=== PATIENT | male | born 1965 | race Caucasian/White ===

== ENCOUNTER 2019-07-08 00:13 | Emergency (ER) | payer MEDICAID ==
[~2019-07-08] VITALS: Ht 167.6 cm; Wt 81.6 kg
[2019-07-08 00:17] VITALS: Ht 167.6 cm; Wt 81.6 kg
[2019-07-08 01:32] LABS: BASOPHIL % 0.5 % (0-2); PLATELET COUNT 197 x10^3mcL (130-400)
[2019-07-08 01:33] LABS: RED CELL DISTRIBUTION WIDTH 14.9 % (11.5-14.5)
[2019-07-08 01:41] LABS: CALCIUM 9.1 mg/dL (8.5-10.1); CARBON DIOXIDE 28.5 mmol/L (21-32); CHLORIDE SERUM 101 mmol/L (98-107); CREATININE SERUM 1.4 mg/dL (0.7-1.3); GFR1 56 mL/min; GLUCOSE SERUM 128 mg/dL (74-106); POTASSIUM SERUM 3.9 mmol/L (3.5-5.1); SODIUM SERUM 138 mmol/L (136-145)
[2019-07-08 01:46] LABS: AMPHETAMINE QUAL UR POSITIVE (See below)
[2019-07-08 01:47] LABS: ALBUMIN 3.5 g/dL (3.4-5.0); ALKALINE PHOSPHATASE 82 U/L (46-116); ALT/SGPT 73 U/L (16-63); AST/SGOT 79 U/L (15-37); BILIRUBIN TOTAL 2.81 mg/dL (0.20-1.00); TOTAL PROTEIN, SERUM 7.5 g/dL (6.4-8.2)
[2019-07-08 02:01] LABS: CHOLESTEROL 133 mg/dL (<200)
[2019-07-08 12:43] VITALS: BP 147/98
== END 2019-07-08 13:11 | disposition short-term general hospital (02) ==
LOC: ED 00:13
PROVIDERS: Specialist
DX: R41.82 Altered mental status, unspecified (principal); I10 Essential (primary) hypertension; I51.7 Cardiomegaly; R60.0 Localized edema
CPT/HCPCS: 83880; 87804; G0480; J0133; J0360; J0696; J2060; J3486; J7030; Q0092